=== PATIENT | female | born 1985 | race African-American/Black ===

== ENCOUNTER 2019-07-17 11:20 | Emergency (ER) | payer MEDICAID, OTHER ==
[~2019-07-17] VITALS: Ht 165.1 cm; Wt 70.0 kg
[2019-07-17] MEDS ORDERED: KETOROLAC 30MG/ML VIAL IM ONE (12:15)
[2019-07-17 14:16] VITALS: BP 102/69
== END 2019-07-17 14:17 | disposition home or self-care (01) ==
LOC: ER 11:20
DX: S93.401A Sprain of unspecified ligament of right ankle, initial encounter (principal); S80.02XA Contusion of left knee, initial encounter; S80.01XA Contusion of right knee, initial encounter; Z98.890 Other specified postprocedural states; Z97.5 Presence of (intrauterine) contraceptive device; W01.0XXA Fall on same level from slipping, tripping and stumbling without subsequent striking against object, initial encounter; Y93.89 Activity, other specified; Y92.018 Other place in single-family (private) house as the place of occurrence of the external cause
CPT/HCPCS: 73560; 73610; 96372; 99284; J1885; L1830

== ENCOUNTER 2021-07-04 12:33 | Emergency (ER) | payer OTHER ==
[~2021-07-04] VITALS: Ht 157.5 cm; Wt 89.0 kg
[2021-07-04 12:36] VITALS: BP 113/77
[2021-07-04] MEDS ORDERED: [UNRECOGNIZED DRUG - CODE] TP (14:25)
== END 2021-07-04 14:35 | disposition home or self-care (01) ==
LOC: ER 12:33
DX: L23.9 Allergic contact dermatitis, unspecified cause (principal); Z98.890 Other specified postprocedural states
CPT/HCPCS: 99281